=== PATIENT | female | born 1995 | race Caucasian/White ===

== ENCOUNTER 2016-10-07 23:00 | Emergency (ER) | payer BC ==
[~2016-10-07] VITALS: Ht 165.1 cm; Wt 100.0 kg
[~2016-10-07 23:00] MED LIST: FAMO20 PO; HYDR50 PO; MEDR4PAK3 PO; SERT-129 PO
[2016-10-07 23:06] VITALS: BP 129/75; PULSE 94; RESP 16; TEMP 98.2; O2SAT 97
[2016-10-07] MEDS ORDERED: ZOLO100T PO (23:11)
[2016-10-07] MEDS ORDERED: ONDANSETRON ODT 4 MG TAB PO ONE (23:30)
[2016-10-07] MEDS ORDERED: KETOROLAC TROMETHAMINE 60 MG/2 ML (IM) VIAL IM ONE (23:30)
[2016-10-07] MEDS ORDERED: ACETAMINOPHEN/HYDROcodone 325 MG/5 MG TAB PO ONE (23:30)
--- NOTE | 2016-10-07 23:31 | PD ---
HPI Chief Complaint: Pain: Acute or Chronic Time Seen by Provider: 23:20 Travel History International Travel<30 days: No Contact w/Intl Traveler<30days: No Traveled to known affect area: No History of Present Illness HPI 21-year-old female presents via EMS for evaluation of left knee pain. She reports that prior to arrival she was bouncing on a trampoline when her left knee "gave out" and she twisted her left knee. She now has left knee pain primarily in the medial and inferior aspect which is throbbing, constant, worse with movement or palpation. She denies any other injuries and she has no other complaints at this time. PFSH Past Medical History Anxiety: Yes Diminished Hearing: No Tetanus Vaccination: < 5 Years Influenza Vaccination: No ?: Unknown LMP: 09/17/16 Past Surgical History Surgical History: No Previous Surgery Social History Alcohol Use: No Tobacco Use: No Substance Use: No Allergies-Medications (Allergen,Severity, Reaction): Coded Allergies: Sunscreen (Verified Allergy, Severe, HIVES, 11/28/15) Reported Meds & Prescriptions Reported Meds & Active Scripts Active Tylenol-Codeine #3 (Acetaminophen-Codeine) 300-30 mg Tab 1 Tab PO Q4H PRN Ibuprofen 800 Mg Tab 800 Mg PO Q6HR PRN Reported Zoloft (Sertraline HCl) 100 Mg Tab 100 Mg PO DAILY Review of Systems Musculoskeletal: Positive: Limited ROM, Pain Skin: Positive Other (denies skin wounds) Physical Exam Narrative GENERAL: Well-developed well-nourished female who is anxious and uncomfortable in appearance SKIN: Warm and dry. No abrasions, no lacerations. Extremities: Examination of the left knee reveals tenderness to palpation along the left inferior knee joint. There is no tenderness to palpation to the left calf, the Achilles tendon is intact, 2+ dorsalis pedis and posterior tibial pulses. The patient has limited flexion and extension of the left knee secondary to acute injury and pain. Stress examination of the knee has been deferred. NEUROLOGICAL: Awake and alert. No obvious cranial nerve deficits. Motor grossly within normal limits. Normal speech. PSYCHIATRIC: Appropriate mood and affect; insight and judgment normal. Data Data Last Documented VS Vital Signs Date Time Temp Pulse Resp B/P Pulse Ox O2 Delivery O2 Flow Rate FiO2 10/07/16 23:08 16 10/07/16 23:06 98.2 94 129/75 97 Orders Knee, Complete (4vws) (10/07/16 ) Ice/Cold Pack (10/07/16 23:27) Ketorolac Inj (Toradol Inj) (10/07/16 23:30) Acetamin-Hydrocod 325-5 Mg ([place] 5-325 (10/07/16 23:30) Ondansetron Odt (Zofran Odt) (10/07/16 23:30) Crutches (10/08/16 00:25) Splint Or Brace Apply/Monitor (10/08/16 00:25) Immobilizer Knee 20 Inch (10/07/16 ) MDM Medical Decision Making Medical Screen Exam Complete: Yes Emergency Medical Condition: Yes Medical Record Reviewed: Yes Differential Diagnosis Ligamentous disruption, meniscal disruption, patellar dislocation, tibial plateau fracture, sprain, strain, contusion Narrative Course 21-year-old female with left knee pain after bouncing on trampoline, feeling her left knee "give way" and twisting her left knee. Examination reveals that there is tenderness to palpation to the anterior left knee joint, limited range of motion secondary to pain and stress examination will be deferred. X-ray imaging will be obtained. Ice pack provided. Lortab, Toradol initiated for pain control. X-ray imaging reveals no acute abnormalities. Given the mechanism of injury I' m concerned about the possibility of a ligamentous or meniscal injury. The patient is being discharged with prescription pain medication, knee immobilizer , crutches, recommended outpatient follow-up next week with primary care physician possibly for MRI imaging. The patient feels significantly improved after the administration of pain medication. She is stable for discharge. Diagnosis Primary Impression: Internal derangement of left knee Departure Forms: Tests/Procedures, Work Release Enter return to work date: Oct 10, 2016 Additional Instructions: Ice several times a day to 2 minutes at a time. Rest. Medication as needed. Follow-up with primary care physician. Return for any emergent medical conditions. Med/Other Pt SpecificInfo: Prescription(s) given, Orthopedic Instructions Scripts Acetaminophen-Codeine (Tylenol-Codeine #3)300-30 mg Tab1 Tab PO Q4H PRN (PAIN) # 20 TAB Ref 0 Prov:Edvin Mckenzie MD 10/08/16 Ibuprofen 800 Mg Sph145 Mg PO Q6HR PRN (PAIN) #40 TAB Ref 0 Prov:Edvin Mckenzie MD 10/08/16 Disposition: 01 DISCHARGE HOME Condition: Stable Rex Ornelas Oct 07, 2016 23:31
--- NOTE | 2016-10-08 00:11 | RADRPT ---
EXAM DATE/TIME: 10/07/2016 23:48 [facility] COMPARISON: No previous studies available for comparison. INDICATIONS : Pt jumping on trampoline tonight. [place] pop and has pain to left knee. Pt says pain is to "Inside" of knee and making her toes numb. MEDICAL HISTORY : None. SURGICAL HISTORY : None. ENCOUNTER: Initial ACUITY: 1 day PAIN SCORE: 8/10 LOCATION: Left knee FINDINGS: Four view examination of the left knee demonstrates no evidence of fracture or dislocation. Bony min eralization is normal. The articular surfaces are intact. There is mild narrowing of the medial com partment without osteophyte formation. The suprapatellar soft tissues have a normal configuration. CONCLUSION: Mild medial compartmental joint with narrowing without osteophytes. No fracture seen. Tani Kaur MD on October 08, 2016 at 0:08 Board Certified Radiologist. This report was verified electronically.
[2016-10-08] MEDS ORDERED: TYLETAB34 PO (00:29)
[2016-10-08] MEDS ORDERED: IBUP800T23 PO (00:29)
[2016-10-08 01:03] VITALS: BP 126/72; TEMP 98.5
== END 2016-10-08 01:04 | disposition home or self-care (01) ==
LOC: NEPB 23:00
DX: M23.92 Unspecified internal derangement of left knee (principal); F41.9 Anxiety disorder, unspecified; Y93.44 Activity, trampolining; X58.XXXA Exposure to other specified factors, initial encounter; Y92.9 Unspecified place or not applicable; Y99.9 Unspecified external cause status
CPT/HCPCS: 73564; 96372; 99283; E0113; J1885; L1830